=== PATIENT | male | born 1955 | race Caucasian/White ===

== ENCOUNTER → 2017-11-28 | Outpatient (CLI) | payer BC | LOC: RAD 09:40 | DX: M79.605 Pain in left leg (principal); R22.42 Localized swelling, mass and lump, left lower limb ==

== ENCOUNTER 2019-03-09 15:55 | Inpatient (IN) | payer BC ==
[~2019-03-09] VITALS: Ht 188 cm; Wt 109.5 kg
[2019-03-09 16:35] VITALS: BP 125/74
[2019-03-09] MEDS ORDERED: FISH OIL1 IU PO (16:41)
[2019-03-09] MEDS ORDERED: ST. JOSEPH ASPI81 MG PO (16:41)
[2019-03-09] MEDS ORDERED: VYTORIN 10 MG-11 TAB PO (16:41)
[2019-03-09 18:54] VITALS: BP 124/79
[2019-03-09 23:00] VITALS: BP 130/75
[2019-03-10 02:55] VITALS: BP 123/73
[2019-03-10 06:19] VITALS: BP 127/82
[2019-03-10 08:31] LABS: ALBUMIN 3.7 g/dL (3.4-4.8); POTASSIUM 4.3 mmol/L (3.5-5.1)
[2019-03-10 08:34] LABS: TOTAL PROTEIN 6.9 g/dL (6.2-8.1)
[2019-03-10 08:36] LABS: TOTAL BILIRUBIN 0.3 mg/dL (0.2-1.2)
[2019-03-10 08:48] LABS: HEMATOCRIT 43.4 % (42.0-52.0); HEMOGLOBIN 14.7 g/dL (13.5-18.0); MEAN CELL VOLUME 83 fl (78-100); MEAN CORPUSCULAR HEMOGLOBIN 28 pg (27-31); MEAN CORPUSCULAR HGB CONC 34 g/dL (33-37); MEAN PLATELET VOLUME 9.6 fl (7.4-10.4); PLATELET COUNT 304 K/mm3 (130-400); RED BLOOD COUNT 5.21 M/mm3 (4.20-5.60); RED CELL DISTRIBUTION WIDTH 13.1 % (11.5-14.5); WHITE BLOOD COUNT 10.1 K/mm3 (4.8-10.8)
[2019-03-10 09:16] LABS: D-DIMER 4.3 mg/L FEU (0.15-0.50)
[2019-03-10 09:20] LABS: CALCIUM 9.3 mg/dL (8.3-10.5); NEUTROPHILS 84 % (42-75)
[2019-03-10 09:21] LABS: LYMPHOCYTE 12 % (20-51); MONOCYTE 4 % (3-10)
[2019-03-10 09:22] LABS: ERYTHROCYTE SEDIMENTATION RATE 17 mm/hr (0-20)
[2019-03-10 11:00] VITALS: BP 142/85
[2019-03-10 14:30] LABS: URINE APPEARANCE CLEAR; URINE BILIRUBIN NEGATIVE (NEGATIVE); URINE BLOOD NEGATIVE (NEGATIVE); URINE COLOR YELLOW; URINE GLUCOSE NEGATIVE (NEGATIVE); URINE KETONE NEGATIVE (NEGATIVE); URINE LEUKOCYTE ESTERASE NEGATIVE (NEGATIVE); URINE NITRATE NEGATIVE (NEGATIVE); URINE PROTEIN(semi-quant) TRACE mg/dL (NEGATIVE); URINE UROBILINOGEN NORMAL (NORMAL); URINE WBC 0-1 /hpf (0-3)
[2019-03-10 15:00] VITALS: BP 142/84
[2019-03-10 17:25] VITALS: BP 128/83
[2019-03-10 23:34] VITALS: BP 148/86
[2019-03-11 02:52] VITALS: BP 116/71
[2019-03-11 06:22] VITALS: BP 138/81
[2019-03-11 11:00] VITALS: BP 131/80
[2019-03-11 15:11] VITALS: BP 122/75
[2019-03-11 18:17] VITALS: BP 141/88
[2019-03-11 23:00] VITALS: BP 112/66
[2019-03-12 03:00] VITALS: BP 125/73
[2019-03-12 06:06] VITALS: BP 131/79
[2019-03-12 08:47] LABS: HEMATOCRIT 42.8 % (42.0-52.0); HEMOGLOBIN 14.3 g/dL (13.5-18.0); MEAN CELL VOLUME 83 fl (78-100); MEAN CORPUSCULAR HEMOGLOBIN 28 pg (27-31); MEAN CORPUSCULAR HGB CONC 33 g/dL (33-37); MEAN PLATELET VOLUME 9.6 fl (7.4-10.4); PLATELET COUNT 386 K/mm3 (130-400); RED BLOOD COUNT 5.14 M/mm3 (4.20-5.60); RED CELL DISTRIBUTION WIDTH 13.5 % (11.5-14.5); WHITE BLOOD COUNT 17.4 K/mm3 (4.8-10.8)
[2019-03-12 08:57] LABS: ALBUMIN 3.5 g/dL (3.4-4.8); POTASSIUM 4.4 mmol/L (3.5-5.1)
[2019-03-12 08:58] LABS: CALCIUM 9.1 mg/dL (8.3-10.5)
[2019-03-12 08:59] LABS: TOTAL PROTEIN 6.2 g/dL (6.2-8.1)
[2019-03-12 09:01] LABS: TOTAL BILIRUBIN 0.3 mg/dL (0.2-1.2)
[2019-03-12 09:03] LABS: LYMPHOCYTE 10 % (20-51); MONOCYTE 7 % (3-10); NEUTROPHILS 83 % (42-75)
[2019-03-12 11:00] VITALS: BP 121/75
[2019-03-12] MEDS ORDERED: MUCUS RELIEF400 M1 PO (12:56)
[2019-03-12] MEDS ORDERED: ELIQUIS5 MG PO ×2 (12:56→13:24)
[2019-03-12] MEDS ORDERED: CEFDINIR300 MG PO (12:56)
[2019-03-12] MEDS ORDERED: ZITHROMAX500 M2 PO (12:56)
[2019-03-12] MEDS ORDERED: ALBUTEROL S5 MG/1 ML IH (12:56)
[2019-03-12] MEDS ORDERED: PREDNISONE10 MG PO (12:56)
[2019-03-12] MEDS ORDERED: FLOMAX0.4 MG PO (12:56)
[2019-03-12 15:06] VITALS: BP 109/66
== END 2019-03-12 15:40 | disposition home or self-care (01) | DRG 176 ==
LOC: MED/SURG 15:55
PROVIDERS: Family Medicine; Nurse Practitioner Primary Care; ADMIT Nurse Practitioner
DX: I26.99 Other pulmonary embolism without acute cor pulmonale (principal); R09.02 Hypoxemia; J84.89 Other specified interstitial pulmonary diseases; Z87.891 Personal history of nicotine dependence; Z79.82 Long term (current) use of aspirin
CPT/HCPCS: A4216; J0456; J0696; J2920; J2930; J7030; J7050; Q9967

== ENCOUNTER → 2019-03-09 | Outpatient (CLI) | payer BC ==
[~2019-03-09] MED LIST: ALBUTEROL S5 MG/1 ML IH; CEFDINIR300 MG PO; ELIQUIS5 MG PO; FISH OIL1 IU PO; FLOMAX0.4 MG PO; MUCUS RELIEF400 M1 PO; PREDNISONE10 MG PO; ST. JOSEPH ASPI81 MG PO; VYTORIN 10 MG-11 TAB PO; ZITHROMAX500 M2 PO
[2019-03-09 15:34] LABS: HEMATOCRIT 44.3 % (42.0-52.0); HEMOGLOBIN 14.9 g/dL (13.5-18.0); MEAN CELL VOLUME 83 fl (78-100); MEAN CORPUSCULAR HEMOGLOBIN 28 pg (27-31); MEAN CORPUSCULAR HGB CONC 34 g/dL (33-37); MEAN PLATELET VOLUME 9.6 fl (7.4-10.4); PLATELET COUNT 284 K/mm3 (130-400); RED BLOOD COUNT 5.32 M/mm3 (4.20-5.60); RED CELL DISTRIBUTION WIDTH 13.2 % (11.5-14.5); WHITE BLOOD COUNT 11.7 K/mm3 (4.8-10.8)
[2019-03-09 15:42] LABS: ALBUMIN 3.9 g/dL (3.4-4.8); POTASSIUM 4.3 mmol/L (3.5-5.1)
[2019-03-09 15:43] LABS: CALCIUM 8.9 mg/dL (8.3-10.5)
[2019-03-09 15:44] LABS: TOTAL PROTEIN 7.1 g/dL (6.2-8.1)
[2019-03-09 15:46] LABS: TOTAL BILIRUBIN 0.3 mg/dL (0.2-1.2)
[2019-03-09 15:49] LABS: LYMPHOCYTE 9 % (20-51); MONOCYTE 5 % (3-10); NEUTROPHILS 86 % (42-75)
== END ==
LOC: LAB 14:52 → RAD 14:52
PROVIDERS: Nurse Practitioner
DX: R50.9 Fever, unspecified (principal); R05 Cough

== ENCOUNTER → 2019-03-18 | Outpatient (CLI) | payer BC ==
[2019-03-12 15:06] VITALS: BP 109/66
== END ==
LOC: RAD 13:26
DX: M71.21 Synovial cyst of popliteal space [Baker], right knee (principal); M79.89 Other specified soft tissue disorders; R06.02 Shortness of breath; Z79.01 Long term (current) use of anticoagulants

== ENCOUNTER → 2019-10-09 | Outpatient (CLI) | payer BC ==
[2019-10-09 08:47] LABS: EOS # 0.2 (0.04-0.40); EOS % 2.3 % (0.0-4.0); HEMATOCRIT 44.1 % (42.0-52.0); HEMOGLOBIN 14.7 g/dL (13.5-18.0); LYMPH# 1.7 (1.50-4.00); MEAN CELL VOLUME 85 fl (78-100); MEAN CORPUSCULAR HEMOGLOBIN 28 pg (27-31); MEAN CORPUSCULAR HGB CONC 33 g/dL (33-37); MEAN PLATELET VOLUME 9.7 fl (7.4-10.4); MONO # 0.7 (0.20-0.80); NEU # 4.1 (1.40-6.50); PLATELET COUNT 240 K/mm3 (130-400); RED BLOOD COUNT 5.17 M/mm3 (4.20-5.60); RED CELL DISTRIBUTION WIDTH 14.1 % (11.5-14.5); WHITE BLOOD COUNT 6.7 K/mm3 (4.8-10.8)
[2019-10-09 09:03] LABS: ALBUMIN 4.1 g/dL (3.4-4.8)
[2019-10-09 09:04] LABS: POTASSIUM 4.5 mmol/L (3.5-5.1)
[2019-10-09 09:05] LABS: CALCIUM 9.1 mg/dL (8.3-10.5)
[2019-10-09 09:06] LABS: TOTAL PROTEIN 6.5 g/dL (6.2-8.1)
[2019-10-09 09:08] LABS: TOTAL BILIRUBIN 0.6 mg/dL (0.2-1.2)
[2019-10-11 02:48] LABS: BETA-2GPI IGG AABS <20.0 CU (<=20.0); BETA-2GPI IGM AABS <20.0 CU (<=20.0)
[2019-10-11 12:14] LABS: ANTI-THROMBIN III 105 % (72-128)
[2019-10-11 12:39] LABS: PROTEIN S ACTIVITY 100 % (64-149)
== END ==
LOC: LAB 08:11
PROVIDERS: Internal Medicine
DX: I26.99 Other pulmonary embolism without acute cor pulmonale (principal)

== ENCOUNTER → 2019-10-16 | Outpatient (CLI) | payer BC | LOC: RAD 08:53 | DX: I26.99 Other pulmonary embolism without acute cor pulmonale (principal) | CPT/HCPCS: Q9967 ==

== ENCOUNTER → 2019-10-17 | Outpatient (CLI) | payer BC | LOC: VAS 07:42 | DX: I26.99 Other pulmonary embolism without acute cor pulmonale (principal) ==

== ENCOUNTER → 2019-11-18 | Outpatient (CLI) | payer BC | LOC: RAD 07:51 | DX: N28.1 Cyst of kidney, acquired (principal); M41.86 Other forms of scoliosis, lumbar region; M47.816 Spondylosis without myelopathy or radiculopathy, lumbar region; M51.36 Other intervertebral disc degeneration, lumbar region; K57.30 Diverticulosis of large intestine without perforation or abscess without bleeding; I26.99 Other pulmonary embolism without acute cor pulmonale | CPT/HCPCS: Q9967 ==

== ENCOUNTER → 2020-01-15 | Outpatient (CLI) | payer BC ==
[2020-01-15 07:59] LABS: EOS # 0.2 (0.04-0.40); EOS % 2.3 % (0.0-4.0); HEMATOCRIT 45.3 % (42.0-52.0); HEMOGLOBIN 14.9 g/dL (13.5-18.0); LYMPH# 2.1 (1.50-4.00); MEAN CELL VOLUME 85 fl (78-100); MEAN CORPUSCULAR HEMOGLOBIN 28 pg (27-31); MEAN CORPUSCULAR HGB CONC 33 g/dL (33-37); MEAN PLATELET VOLUME 9.8 fl (7.4-10.4); MONO # 0.6 (0.20-0.80); NEU # 3.7 (1.40-6.50); PLATELET COUNT 255 K/mm3 (130-400); RED BLOOD COUNT 5.33 M/mm3 (4.20-5.60); RED CELL DISTRIBUTION WIDTH 13.9 % (11.5-14.5); WHITE BLOOD COUNT 6.6 K/mm3 (4.8-10.8)
== END ==
LOC: LAB 07:33
PROVIDERS: Internal Medicine
DX: I26.99 Other pulmonary embolism without acute cor pulmonale (principal); N28.1 Cyst of kidney, acquired

== ENCOUNTER → 2020-01-17 | Outpatient (CLI) | payer BC | LOC: RAD 08:52 | DX: I26.99 Other pulmonary embolism without acute cor pulmonale (principal) | CPT/HCPCS: Q9967 ==

== ENCOUNTER → 2020-05-21 | Outpatient (CLI) | payer BC | LOC: RAD 07:07 | PROVIDERS: Family Medicine | DX: N28.1 Cyst of kidney, acquired (principal) | CPT/HCPCS: Q9967 ==

== ENCOUNTER → 2020-07-22 | Outpatient (CLI) | payer BC | LOC: LAB 07:47 | PROVIDERS: Family Medicine | DX: N28.1 Cyst of kidney, acquired (principal); E78.2 Mixed hyperlipidemia ==

== ENCOUNTER → 2020-08-04 | Outpatient (CLI) | payer BC | LOC: RAD 08:31 → LAB 08:31 → RAD 09:15 | DX: Z82.49 Family history of ischemic heart disease and other diseases of the circulatory system (principal) ==

== ENCOUNTER → 2021-06-02 | Outpatient (CLI) | payer BC | LOC: RAD 08:24 → LAB 08:24 | DX: N28.1 Cyst of kidney, acquired (principal); Z90.49 Acquired absence of other specified parts of digestive tract | CPT/HCPCS: Q9967 ==